=== PATIENT | male | born 1940 | race Caucasian/White ===

== ENCOUNTER 2016-06-07 01:59 | Observation (INO) | payer OTHER, MEDICARE ==
[~2016-06-07] VITALS: Ht 170.2 cm; Wt 67.5 kg
[~2016-06-07 01:59] MED LIST: ASPIRIN EC325 MG PO; BENADRYL25 MG PO; BISACODYL5 MG PO; BLACK CHERRY EXTRACT PO; CELEBREX200 MG PO; CENTRUM SILVER1 EAC3 PO; HYDROCODON-ACE1 EAC7 PO; INDOMETHACIN50 MG PO; IRON325 MG PO; LIPITOR80 MG PO; LO-DOSE ASPIRIN81 M1 PO; METOPROLOL TART25 MG PO; NEXIUM40 MG PO; NITROSTAT0.4 MG SL; OXYCODONE HCL5 MG PO; TIZANIDINE HCL2 M1 PO; TYLENOL REGULA325 MG PO; VITAMIN B-6100 MG PO; XALATAN2.5 ML BOTH EYES; ZANTAC150 MG PO; ZETIA10 MG PO; ZYRTEC10 M2 PO
[2016-06-07 03:01] LABS: MCH 28.6 PG (29.0-34.0); MCHC 32.6 G/DL (30.0-36.0); MCV 87.8 FL (86-99); MEAN PLAT.VOLUME 9.3 uM^3 (9.0-12.4); PLATELET COUNT 203 K/uL (156-360); RBC DIS.WIDTH-CV 14.3 % (11.8-14.6); RBC DIS.WIDTH-SD 45.2 % (39-53); RED BLOOD COUNT 4.33 M/uL (4.00-5.50); WHITE BLOOD COUNT 11.2 K/uL (4.1-10.2)
[2016-06-07 03:11] LABS: CHLORIDE 106 mEq/L (99-109); POTASSIUM 4.3 mEq/L (3.7-5.4); SODIUM 141 mEq/L (136-147)
[2016-06-07 03:12] LABS: INTER. NORMALIZED RATIO 1.1; PROTHROMBIN TIME 11.2 (9.2-11.2); PTT 24.9 (25-32)
[2016-06-07 03:14] LABS: GLUCOSE 106 mg/dL (70-99)
[2016-06-07 03:15] LABS: ANION GAP 9 MEQ/L (2-14)
[2016-06-07 03:16] LABS: TOTAL BILIRUBIN 0.5 mg/dL (0.0-1.0)
[2016-06-07 03:17] LABS: ALKALINE PHOSPHATASE 183 IU/L (3-129); GFR ESTIMATE (CALCULATED) > 59 mL/min/
[2016-06-07 03:19] LABS: UREA NITROGEN (BUN) 21 mg/dL (9-23)
[2016-06-07 03:21] LABS: LIPASE 31 U/L (1.0-51.0); TROP-I INTERPRETATION NEGATIVE; TROPONIN-I < 0.01 ng/mL (0.0-0.30)
[2016-06-07] MEDS ORDERED: CETIRIZINE HCL10 M2 PO (03:23)
[2016-06-07] MEDS ORDERED: ASPIR-LOW81 MG PO (03:29)
[2016-06-07 09:30] VITALS: BP 134/69
[2016-06-07 10:19] LABS: HDL CHOLESTEROL 42 MG/DL (Desirable>=40); LDL CHOLESTEROL 142 mg/dL (Desirable<100); NON-HDL CHOLESTEROL 162 mg/dL (Desirable<160); TOTAL CHOLESTEROL 204 mg/dL (Desirable<200); TRIGLYCERIDES 100 MG/DL (Normal: <150)
[2016-06-07 10:37] LABS: TROP-I INTERPRETATION NEGATIVE; TROPONIN-I < 0.01 ng/mL (0.0-0.30)
[2016-06-07 11:59] VITALS: BP 130/70
[2016-06-07 15:47] LABS: TROP-I INTERPRETATION NEGATIVE; TROPONIN-I < 0.01 ng/mL (0.0-0.30)
== END 2016-06-07 16:05 | disposition home or self-care (01) ==
LOC: EME → EDBD 01:59 → EME 01:59 → EDOF 04:42 → 5WEST 09:12
PROVIDERS: Emergency Medicine; Physician Assistant Medical
DX: R07.89 Other chest pain (principal); I25.10 Atherosclerotic heart disease of native coronary artery without angina pectoris; Z95.1 Presence of aortocoronary bypass graft; K21.9 Gastro-esophageal reflux disease without esophagitis; E78.5 Hyperlipidemia, unspecified; R10.13 Epigastric pain; R61 Generalized hyperhidrosis; Z87.891 Personal history of nicotine dependence; Z82.49 Family history of ischemic heart disease and other diseases of the circulatory system; Z82.5 Family history of asthma and other chronic lower respiratory diseases; Z79.82 Long term (current) use of aspirin
CPT/HCPCS: 71020; 74177; 80053; 80061; 83605; 83690; 84484; 85027; 85610; 85730; 93005; 99281; 99285; G0378; J1644; J2405; J7030